=== PATIENT | male | born 1970 | race Caucasian/White ===

== ENCOUNTER 2024-03-10 12:25 | Observation (INO) ==
--- NOTE | 2024-03-10 12:55 | DR.GENAD ---
HPI Time Seen Time Seen by Provider: 03/10/24 12:55 COVID-19 Coronavirus risk:travel/contact w/high risk person: No Has patient experienced Coronavirus symptoms: No PMH Travel Risk Coronavirus risk:travel/contact w/high risk person: No Has patient experienced Coronavirus symptoms: No PE Vital Signs Vitals: Vital Signs Temperature 97.7 F Pulse Rate [Left Radial] 84 Pulse Rate [Left Radial] 85 Pulse Rate [Left Radial] 84 Pulse Rate [Left Radial] 85 Pulse Rate [Left Radial] 83 Pulse Rate [Left Radial] 83 Pulse Rate [Left Radial] 82 Pulse Rate [Left Radial] 83 Pulse Rate 89 Pulse Rate 83 Respiratory Rate 21 Respiratory Rate 17 Respiratory Rate 19 Respiratory Rate 22 Respiratory Rate 24 Respiratory Rate 17 Respiratory Rate 26 Respiratory Rate 24 Respiratory Rate 14 Respiratory Rate 16 Blood Pressure [Right Arm] 151/70 Blood Pressure [Right Arm] 133/70 Blood Pressure [Right Arm] 144/63 Blood Pressure [Right Arm] 179/86 Blood Pressure [Right Arm] 142/67 Blood Pressure [Right Arm] 166/75 Blood Pressure [Right Arm] 169/80 Blood Pressure [Right Arm] 160/84 Blood Pressure 160/84 O2 Sat by Pulse Oximetry 99 O2 Sat by Pulse Oximetry 99 O2 Sat by Pulse Oximetry 98 O2 Sat by Pulse Oximetry 100 O2 Sat by Pulse Oximetry 99 O2 Sat by Pulse Oximetry 98 O2 Sat by Pulse Oximetry 100 O2 Sat by Pulse Oximetry 99 O2 Sat by Pulse Oximetry 98 ROR Labs Reviewed 03/10/24 12:45 03/10/24 12:45 Laboratory: WBC 11.1 X10^3/uL (3.6-10.0) H 03/10/24 12:45 RBC 4.60 X10^6/uL (4.7-6.0) L 03/10/24 12:45 Hgb 12.7 g/dL (13.5-18.0) L 03/10/24 12:45 Hct 35.7 % (42.0-54.0) L 03/10/24 12:45 MCV 77.6 fL (80.0-100.0) L 03/10/24 12:45 MCH 27.6 pg (27.0-34.0) 03/10/24 12:45 MCHC 35.6 g/dL (33.0-35.0) H 03/10/24 12:45 RDW 14.3 % (11.6-16.5) 03/10/24 12:45 Plt Count 341 X10^3/uL (150.0-450.0) 03/10/24 12:45 MPV 7.9 fL (7.4-11.0) 03/10/24 12:45 Neut % (Auto) 77.9 % (42.0-75.0) H 03/10/24 12:45 Lymph % (Auto) 14.3 % (21.0-51.0) L 03/10/24 12:45 [place] % (Auto) 6.8 % (0.0-13.0) 03/10/24 12:45 Eos % (Auto) 0.2 % (0.9-2.9) L 03/10/24 12:45 Baso % (Auto) 0.8 % (0.2-1.0) 03/10/24 12:45 Neut # (Auto) 8.6 x10^3/uL (2.2-4.8) H 03/10/24 12:45 Lymph # (Auto) 1.6 X10^3/uL (1.3-2.9) 03/10/24 12:45 [place] # (Auto) 0.8 x10^3/uL (0.3-0.8) 03/10/24 12:45 Eos # (Auto) 0.0 x10^3/uL (0.0-0.2) 03/10/24 12:45 Baso # (Auto) 0.1 X10^3/uL (0.0-0.1) 03/10/24 12:45 Absolute Nucleated RBC 0.3 /100WBC 03/10/24 12:45 Sodium 143 mmol/L (136-145) 03/10/24 12:45 Corrected Sodium TNP 03/10/24 12:45 Potassium 3.0 mmol/L (3.5-5.1) L 03/10/24 12:45 Chloride 103 mmol/L (98-107) 03/10/24 12:45 Carbon Dioxide 33.1 mmol/L (21-32) H 03/10/24 12:45 BUN 11 mg/dL (7-18) 03/10/24 12:45 Creatinine 0.97 mg/dL (0.70-1.30) 03/10/24 12:45 Est GFR (MDRD) Af Amer > 60 (>60) 03/10/24 12:45 Est GFR (MDRD) Non-Af > 60 (>60) 03/10/24 12:45 Glucose 80 mg/dL (65-99) 03/10/24 12:45 Calcium 11.6 mg/dL (8.5-10.1) H 03/10/24 12:45 Corrected Calcium 12.2 mg/dL (8.5-10.1) H 03/10/24 12:45 Magnesium 1.3 mg/dL (2.0-2.9) L 03/10/24 17:53 Total Bilirubin 0.90 mg/dL (0.2-1.0) 03/10/24 12:45 AST 23 Units/L (15-37) 03/10/24 12:45 ALT 25 Units/L (12-78) 03/10/24 12:45 Alkaline Phosphatase 125 Units/L (46-116) H 03/10/24 12:45 Creatine Kinase 71 Units/L (39-308) 03/10/24 12:45 Troponin I High Sens 34.3 ng/L (4.0-60.0) 03/10/24 12:45 Total Protein 7.1 g/dL (6.4-8.2) 03/10/24 12:45 Albumin 3.2 g/dL (3.4-5.0) L 03/10/24 12:45 Globulin 3.9 g/dL (2.5-4.5) 03/10/24 12:45 Albumin/Globulin Ratio 0.8 Ratio (1.1-2.1) L 03/10/24 12:45 Specimen Type Clean catch urine 03/10/24 15:49 Urine Color Yellow (YELLOW) 03/10/24 15:49 Urine Appearance Clear (CLEAR) 03/10/24 15:49 Urine pH 6.0 (5.0 - 8.0) 03/10/24 15:49 Ur Specific [place] 1.020 (1.000-1.030) 03/10/24 15:49 Urine Protein 2+ (NEGATIVE) 03/10/24 15:49 Urine Glucose (UA) Negative (NEGATIVE) 03/10/24 15:49 Urine Ketones 3+ (NEGATIVE) 03/10/24 15:49 Urine Blood Negative (NEGATIVE) 03/10/24 15:49 Urine Nitrite Negative (NEGATIVE) 03/10/24 15:49 Urine Bilirubin 1+ (NEGATIVE) 03/10/24 15:49 Urine Urobilinogen Normal (NORMAL) 03/10/24 15:49 Ur Leukocyte Esterase Negative (NEGATIVE) 03/10/24 15:49 Urine RBC 0-2 /HPF (0-3) 03/10/24 15:49 Urine WBC 3-5 /HPF (0-5) 03/10/24 15:49 Ur Squamous Epith Cells Rare /HPF (NEGATIVE) 03/10/24 15:49 Ur Renal Epithelial Cell Rare /HPF (NEGATIVE) 03/10/24 15:49 Urine Bacteria Trace /HPF (NEGATIVE) 03/10/24 15:49 Hyaline Casts Moderate /LPF (NEGATIVE) 03/10/24 15:49 Urine Mucus Few /HPF (NEGATIVE) 03/10/24 15:49 Ur Culture Indicated? No/not indicated 03/10/24 15:49 Opioid Opioid Risk Tool Age ([place] box if 16-45): No History of Preadolescent Sexual Abuse: No Total: 0 Total Score Risk Category: Low Risk Copyright: Victor Manuel PEREZ predicting aberrant behaviors Discharge Plan Diagnosis Discharge Problem: Weakness, Hypokalemia, Unable to ambulate, AMS (altered mental status) Discharge Plan Patient Disposition: HOME, SELF-CARE Condition: Stable Prescriptions: No Action metoprolol succinate 50 mg Tablet Extended Release 24 Hr 50 mg PO QDAY methimazole 10 mg Tablet 10 mg PO Q8H mirtazapine 7.5 mg Tablet 7.5 mg PO QHS emtricitabine-tenofovir (TDF) 200-300 mg Tablet 1 tab PO QDAY Health Concerns: Post Hospitalization: new medications and changes needed to prevent readmission or further decline. Pt educated and given instructions on all concerns. Plan of Treatment: Continue with present treatment and follow up plan. Pt is to keep follow up appointment as instructed and take medications as ordered. Orders to Discharge Patient Discharge Orders: Transfer (Routine); Ordered 03/10/24 Ordered By: JUSTICE JORGE Instructions Stand Alone Forms: Find Help Web Site, Post Hospital Follow Up Care
[2024-03-10 13:09] LABS: BASOPHILS # (AUTO) 0.1 X10^3/uL (0.0-0.1); BASOPHILS % (AUTO) 0.8 % (0.2-1.0); EOSINOPHILS % (AUTO) 0.2 % (0.9-2.9); HEMATOCRIT 35.7 % (42.0-54.0); HEMOGLOBIN 12.7 g/dL (13.5-18.0); LYMPHOCYTES # (AUTO) 1.6 X10^3/uL (1.3-2.9); LYMPHOCYTES % (AUTO) 14.3 % (21.0-51.0); MEAN CORPUSCULAR HEMOGLOBIN 27.6 pg (27.0-34.0); MEAN CORPUSCULAR HGB CONC 35.6 g/dL (33.0-35.0); MEAN CORPUSCULAR VOLUME 77.6 fL (80.0-100.0); MEAN PLATELET VOLUME 7.9 fL (7.4-11.0); MONOCYTES # (AUTO) 0.8 x10^3/uL (0.3-0.8); MONOCYTES % (AUTO) 6.8 % (0.0-13.0); NEUTROPHILS # (AUTO) 8.6 x10^3/uL (2.2-4.8); NEUTROPHILS % (AUTO) 77.9 % (42.0-75.0); PLATELET COUNT 341 X10^3/uL (150.0-450.0); RED CELL DISTRIBUTION WIDTH 14.3 % (11.6-16.5); WHITE BLOOD COUNT 11.1 X10^3/uL (3.6-10.0)
[2024-03-10 13:18] LABS: ALANINE AMINOTRANSFERASE 25 Units/L (12-78); ALBUMIN 3.2 g/dL (3.4-5.0); ALKALINE PHOSPHATASE 125 Units/L (46-116); ASPARTATE AMINO TRANSFERASE 23 Units/L (15-37); BLOOD UREA NITROGEN 11 mg/dL (7-18); CALCIUM 11.6 mg/dL (8.5-10.1); CARBON DIOXIDE 33.1 mmol/L (21-32); CHLORIDE 103 mmol/L (98-107); COR CA(FOR HYPOALB) 12.2 mg/dL (8.5-10.1); CREATINE KINASE 71 Units/L (39-308); CREATININE 0.97 mg/dL (0.70-1.30); GLUCOSE 80 mg/dL (65-99); SODIUM 143 mmol/L (136-145); TOTAL PROTEIN 7.1 g/dL (6.4-8.2); eGFR NON BLACK RACES > 60 (>60)
--- NOTE | 2024-03-10 13:18 | EKG ---
Test Reason : syncopy Blood Pressure : */* mmHG Vent. Rate : 82 BPM Atrial Rate : 82 BPM P-R Int : 226 ms QRS Dur : 86 ms QT Int : 388 ms P-R-T Axes : 66 28 33 degrees QTc Int : 453 ms Sinus rhythm with 1st degree AV block Otherwise normal ECG No previous ECGs available Confirmed by Brennon Feliz MD ([id number]) on 03/12/2024 7:35:51 AM Referred By: Confirmed By: Brennon Feliz MD
--- NOTE | 2024-03-10 13:36 | CT ---
EXAM: BRAIN W/O CON HISTORY: AMS; COMPARISON: None. TECHNIQUE: Multiple axial images of the head were performed from the skullbase to the vertex using standard depa rtmental protocol. Sagittal and coronal reformatted images were performed. Dose reduction techniques including Automated Exposure Control (AEC) and adjustment of mA and kV were utilized. FINDINGS: The sulci, cisterns and ventricles are age appropriate. Mild cortical atrophy compatible with patien t's age. There is no evidence of acute territorial infarction, hemorrhage, mass, mass effect or midl ine shift. There are no abnormal intra-axial or extra-axial fluid collections. The visualized paranas al sinuses and mastoid air cells are predominantly clear. IMPRESSION: Mild cortical atrophy. No acute intracranial pathology THIS IS AN ELECTRONICALLY VERIFIED FINAL REPORT 03/10/2024 1:29 PM - Electronically signed by Huy Rojas MD
[2024-03-10] MEDS: NS 1,000 ML IV 1,000 ML IV SCH ×2 (14:03→23:53)
[2024-03-10] MEDS: K-DUR TAB 20 MEQ PO ONE (15:25)
[2024-03-10 16:04] LABS: BILIRUBIN,URINE 1+ (NEGATIVE); BLOOD/HEMOGLOBIN,URINE NEGATIVE (NEGATIVE); GLUCOSE, URINE NEGATIVE (NEGATIVE); KETONES,URINE 3+ (NEGATIVE); LEUKOCYTE ESTERASE ,URINE NEGATIVE (NEGATIVE); NITRITES,URINE NEGATIVE (NEGATIVE); PROTEIN,URINE 2+ (NEGATIVE); UROBILINOGEN,URINE NORMAL (NORMAL)
[2024-03-10 16:13] LABS: APPEARANCE,URINE CLEAR (CLEAR); COLOR,URINE YELLOW (YELLOW)
[2024-03-10 16:19] LABS: BACTERIA,URINE TRACE /HPF (NEGATIVE); HYALINE CASTS, URINE MODERATE /LPF (NEGATIVE); RBC,URINE 0-2 /HPF (0-3); SQUAMOUS EPITHELIAL CELL,UR RARE /HPF (NEGATIVE)
[2024-03-10 16:20] LABS: RENAL EPITHELIAL CELLS,URINE RARE /HPF (NEGATIVE)
[2024-03-10 21:02] VITALS: BMI 20.9
[2024-03-11 06:14] LABS: BASOPHILS # (AUTO) 0.1 X10^3/uL (0.0-0.1); BASOPHILS % (AUTO) 1.2 % (0.2-1.0); EOSINOPHILS # (AUTO) 0.1 x10^3/uL (0.0-0.2); EOSINOPHILS % (AUTO) 1.2 % (0.9-2.9); HEMATOCRIT 30.2 % (42.0-54.0); HEMOGLOBIN 10.9 g/dL (13.5-18.0); LYMPHOCYTES # (AUTO) 3.2 X10^3/uL (1.3-2.9); LYMPHOCYTES % (AUTO) 37.2 % (21.0-51.0); MEAN CORPUSCULAR HEMOGLOBIN 27.9 pg (27.0-34.0); MEAN CORPUSCULAR HGB CONC 35.9 g/dL (33.0-35.0); MEAN CORPUSCULAR VOLUME 77.8 fL (80.0-100.0); MEAN PLATELET VOLUME 7.7 fL (7.4-11.0); MONOCYTES # (AUTO) 0.7 x10^3/uL (0.3-0.8); MONOCYTES % (AUTO) 8.6 % (0.0-13.0); NEUTROPHILS # (AUTO) 4.4 x10^3/uL (2.2-4.8); NEUTROPHILS % (AUTO) 51.8 % (42.0-75.0); PLATELET COUNT 302 X10^3/uL (150.0-450.0); RED BLOOD COUNT 3.89 X10^6/uL (4.7-6.0); RED CELL DISTRIBUTION WIDTH 14.3 % (11.6-16.5); WHITE BLOOD COUNT 8.6 X10^3/uL (3.6-10.0)
[2024-03-11 06:27] LABS: ALANINE AMINOTRANSFERASE 22 Units/L (12-78); ALBUMIN 2.8 g/dL (3.4-5.0); ALKALINE PHOSPHATASE 111 Units/L (46-116); BLOOD UREA NITROGEN 14 mg/dL (7-18); CALCIUM 10.9 mg/dL (8.5-10.1); CARBON DIOXIDE 30.6 mmol/L (21-32); CHLORIDE 106 mmol/L (98-107); COR CA(FOR HYPOALB) 11.9 mg/dL (8.5-10.1); CREATININE 1.21 mg/dL (0.70-1.30); GLUCOSE 75 mg/dL (65-99); MAGNESIUM 1.3 mg/dL (2.0-2.9); SODIUM 145 mmol/L (136-145); TOTAL PROTEIN 6.2 g/dL (6.4-8.2); eGFR NON BLACK RACES > 60 (>60)
[2024-03-11 06:30] LABS: POTASSIUM 2.7 mmol/L (3.5-5.1)
[2024-03-11 06:39] LABS: ASPARTATE AMINO TRANSFERASE 19 Units/L (15-37)
[2024-03-11] MEDS ORDERED: K-DUR TAB 20 MEQ PO SCH (09:00)
[2024-03-11] MEDS ORDERED: MAG-OX TAB PO SCH (09:00)
[2024-03-11] MEDS: NS + KCL 20 MEQ/L 1,000 ML with MAGNESIUM SULFATE 50% INJ VIAL 1 G IV SCH (09:13)
[2024-03-11] MEDS: NICOTINE PATCH TD SCH (09:13)
[2024-03-11] MEDS: TOPROL XL PO SCH (10:15)
[2024-03-11 10:53] LABS: CREATINE KINASE 66 Units/L (39-308); FREE T4 (FREE THYROXINE) 5.55 ng/dL (0.76-1.46)
[2024-03-11 10:55] LABS: TSH (3RD GENERATION) < 0.007 uIU/mL (0.358-3.74)
--- NOTE | 2024-03-11 12:07 | DR.H&P ---
H&P History & Physical for Day of: H&P Date: 03/11/24 Chief Complaint Chief Complaint: Lower extremity weakness History of Present Illness History of Present Illness: Patient is a 53-year-old male with a past medical history of hypertension and hyperthyroidism [place] generalized [place]. He reports he has had difficulty that day with lower leg weakness. Labs/imaging: WBC 8.6, hemoglobin 10.9, platelets 302, sodium 145, potassium 2.7, creatinine 1.21, glucose 75, ma gnesium 1.3, UA negative, CT of the head was obtained that revealed no acute intracranial abnormalities. Patient was admitted for hypokalemia, hypomagnesemia, generalized weakness. He was started on potassium and magnesium protocol. He is ambulating to the restroom. On exam he appears to have st rength in all 4 extremities. Will restart home medications. Will get CRP and CK and also check thyroid levels. Otherwise continue with current treatment plan. Continue closely monitor and follow-up labs. Past Medical History Past Medical History: Anxiety, Depression and Hypertension Social History Does patient currently use any type of tobacco product: Yes Have you used tobacco products in the last 12 months: Yes Type of Tobacco Use: Vape Does any household member use tobacco: No Alcohol Use: None Drug Use: None Medications Home Medications: Home Medications Medication Instructions Recorded Confirmed Type emtricitabine 200 mg-tenofovir 1 tab PO QDAY 03/10/24 03/10/24 History disoproxil fumarate 300 mg tablet methimazole 10 mg tablet 10 mg PO Q8H 03/10/24 03/10/24 History metoprolol succinate 50 mg 50 mg PO QDAY 03/10/24 03/10/24 History tablet,extended release 24 hr mirtazapine 7.5 mg tablet 7.5 mg PO QHS 03/10/24 03/10/24 History amlodipine 10 mg tablet 10 mg PO DAILY 03/11/24 03/11/24 History losartan 100 mg tablet 100 mg PO DAILY 03/11/24 03/11/24 History Allergies Allergies Allergy/AdvReac Type Severity Reaction Status Date / Time No Known Allergies Allergy Verified 03/10/24 12:26 Labs 03/11/24 05:45 03/11/24 05:45 Labs: Laboratory WBC 8.6 X10^3/uL (3.6-10.0) 03/11/24 05:45 RBC 3.89 X10^6/uL (4.7-6.0) L 03/11/24 05:45 Hgb 10.9 g/dL (13.5-18.0) L 03/11/24 05:45 Hct 30.2 % (42.0-54.0) L 03/11/24 05:45 MCV 77.8 fL (80.0-100.0) L 03/11/24 05:45 MCH 27.9 pg (27.0-34.0) 03/11/24 05:45 MCHC 35.9 g/dL (33.0-35.0) H 03/11/24 05:45 RDW 14.3 % (11.6-16.5) 03/11/24 05:45 Plt Count 302 X10^3/uL (150.0-450.0) 03/11/24 05:45 MPV 7.7 fL (7.4-11.0) 03/11/24 05:45 Neut % (Auto) 51.8 % (42.0-75.0) 03/11/24 05:45 Lymph % (Auto) 37.2 % (21.0-51.0) 03/11/24 05:45 [place] % (Auto) 8.6 % (0.0-13.0) 03/11/24 05:45 Eos % (Auto) 1.2 % (0.9-2.9) 03/11/24 05:45 Baso % (Auto) 1.2 % (0.2-1.0) H 03/11/24 05:45 Neut # (Auto) 4.4 x10^3/uL (2.2-4.8) 03/11/24 05:45 Lymph # (Auto) 3.2 X10^3/uL (1.3-2.9) H 03/11/24 05:45 [place] # (Auto) 0.7 x10^3/uL (0.3-0.8) 03/11/24 05:45 Eos # (Auto) 0.1 x10^3/uL (0.0-0.2) 03/11/24 05:45 Baso # (Auto) 0.1 X10^3/uL (0.0-0.1) 03/11/24 05:45 Absolute Nucleated RBC 0.2 /100WBC 03/11/24 05:45 Sodium 145 mmol/L (136-145) 03/11/24 05:45 Corrected Sodium TNP 03/11/24 05:45 Potassium 2.7 mmol/L (3.5-5.1) L* 03/11/24 05:45 Chloride 106 mmol/L (98-107) 03/11/24 05:45 Carbon Dioxide 30.6 mmol/L (21-32) 03/11/24 05:45 BUN 14 mg/dL (7-18) 03/11/24 05:45 Creatinine 1.21 mg/dL (0.70-1.30) 03/11/24 05:45 Est GFR (MDRD) Af Amer > 60 (>60) 03/11/24 05:45 Est GFR (MDRD) Non-Af > 60 (>60) 03/11/24 05:45 Glucose 75 mg/dL (65-99) 03/11/24 05:45 Calcium 10.9 mg/dL (8.5-10.1) H 03/11/24 05:45 Corrected Calcium 11.9 mg/dL (8.5-10.1) H 03/11/24 05:45 Magnesium 1.3 mg/dL (2.0-2.9) L 03/11/24 05:45 Total Bilirubin 0.60 mg/dL (0.2-1.0) 03/11/24 05:45 AST 19 Units/L (15-37) 03/11/24 05:45 ALT 22 Units/L (12-78) 03/11/24 05:45 Alkaline Phosphatase 111 Units/L (46-116) 03/11/24 05:45 Creatine Kinase 66 Units/L (39-308) 03/11/24 05:45 Troponin I High Sens 34.3 ng/L (4.0-60.0) 03/10/24 12:45 C-Reactive Protein 28.20 mg/L (0-3.0) H 03/11/24 05:45 Total Protein 6.2 g/dL (6.4-8.2) L 03/11/24 05:45 Albumin 2.8 g/dL (3.4-5.0) L 03/11/24 05:45 Globulin 3.4 g/dL (2.5-4.5) 03/11/24 05:45 Albumin/Globulin Ratio 0.8 Ratio (1.1-2.1) L 03/11/24 05:45 Free T4 5.55 ng/dL (0.76-1.46) H 03/11/24 05:45 TSH 3rd Generation < 0.007 uIU/mL (0.358-3.74) L 03/11/24 05:45 Specimen Type Clean catch urine 03/10/24 15:49 Urine Color Yellow (YELLOW) 03/10/24 15:49 Urine Appearance Clear (CLEAR) 03/10/24 15:49 Urine pH 6.0 (5.0 - 8.0) 03/10/24 15:49 Ur Specific [place] 1.020 (1.000-1.030) 03/10/24 15:49 Urine Protein 2+ (NEGATIVE) 03/10/24 15:49 Urine Glucose (UA) Negative (NEGATIVE) 03/10/24 15:49 Urine Ketones 3+ (NEGATIVE) 03/10/24 15:49 Urine Blood Negative (NEGATIVE) 03/10/24 15:49 Urine Nitrite Negative (NEGATIVE) 03/10/24 15:49 Urine Bilirubin 1+ (NEGATIVE) 03/10/24 15:49 Urine Urobilinogen Normal (NORMAL) 03/10/24 15:49 Ur Leukocyte Esterase Negative (NEGATIVE) 03/10/24 15:49 Urine RBC 0-2 /HPF (0-3) 03/10/24 15:49 Urine WBC 3-5 /HPF (0-5) 03/10/24 15:49 Ur Squamous Epith Cells Rare /HPF (NEGATIVE) 03/10/24 15:49 Ur Renal Epithelial Cell Rare /HPF (NEGATIVE) 03/10/24 15:49 Urine Bacteria Trace /HPF (NEGATIVE) 03/10/24 15:49 Hyaline Casts Moderate /LPF (NEGATIVE) 03/10/24 15:49 Urine Mucus Few /HPF (NEGATIVE) 03/10/24 15:49 Ur Culture Indicated? No/not indicated 03/10/24 15:49 Review of Systems Constitutional: Weakness Eyes: No Symptoms Reported ENT: No Symptoms Reported Respiratory: No Symptoms Reported Cardiovascular: No Symptoms Reported Gastrointestinal: No Symptoms Reported Genitourinary: No Symptoms Reported Musculoskeletal: No Symptoms Reported Skin: No Symptoms Reported Neurological: No Symptoms Reported Physical Exam Vital Signs: Vital Signs Temperature 98.0 F Pulse Rate [Left Radial] 87 Respiratory Rate 19 Blood Pressure [Right Arm] 128/62 O2 Sat by Pulse Oximetry 97 Oriented: Normal Eyes: Normal Ear: Normal Nose: Normal Throat: Normal Respiratory: Clear Throughout Cardiovascular: Normal : Normal Auscultation: Bowel Sounds: Normal Palpation: Normal Tenderness: Normal Skin: Normal Musculoskeletal: Normal Psychiatric: Normal Mood Description: Calm and Appropriate Affect: Normal Speech Pattern: Clear and Appropriate Assessment/Plan (1) Hypokalemia: Status: Acute Plan: replete per protocol. (2) Weakness: Status: Acute (3) Hypomagnesemia: Status: Acute Review H&P Reviewed: Yes Patient was examined?: Yes
[2024-03-11 12:18] LABS: MAGNESIUM 1.3 mg/dL (2.0-2.9)
[2024-03-11 12:32] LABS: POTASSIUM 2.6 mmol/L (3.5-5.1)
[2024-03-11] MEDS: TAPAZOLE PO SCH (13:11)
[2024-03-11] MEDS: TAPAZOLE ONE (13:35)
--- NOTE | 2024-03-11 15:12 | RAD ---
EXAM:CHEST, 1 VIEWHISTORY:SOB;COMPARISON:None available.FINDINGS:The trachea is midline. The cardiac silhouette is unremarkable . The lungs are clear without focal infiltrate or effusion. The bony thorax is unremarkable.IMPRESSION:Normal chestTHIS IS AN ELECTRONICALLY VERIFIED FINAL [id number]/11/2024 3:08 PM - Electronically signed by Huy Rojas MD
[2024-03-11] MEDS: K-DUR TAB 20 MEQ PO SCH (16:00)
[2024-03-11] MEDS: MAG-OX TAB PO SCH (16:01)
[2024-03-11] MEDS: CONSULT PHARMACY - POTASSIUM & MAGNESIUM XX SCH (19:00)
[2024-03-11] MEDS: METHIMAZOLE 10 MG PO SCH (19:01)
[2024-03-11] MEDS ORDERED: TAPAZOLE ONE (19:55)
[2024-03-11] MEDS: REMERON PO SCH (20:59)
[2024-03-11] MEDS: CHECK PATCH XX SCH (21:00)
[2024-03-12 04:16] VITALS: O2SAT 96
[2024-03-12] MEDS ORDERED: TAPAZOLE ONE (05:11)
[2024-03-12 05:58] LABS: BASOPHILS % (AUTO) 0.8 % (0.2-1.0); EOSINOPHILS # (AUTO) 0.1 x10^3/uL (0.0-0.2); EOSINOPHILS % (AUTO) 2.3 % (0.9-2.9); HEMATOCRIT 29.7 % (42.0-54.0); HEMOGLOBIN 10.8 g/dL (13.5-18.0); LYMPHOCYTES # (AUTO) 2.7 X10^3/uL (1.3-2.9); LYMPHOCYTES % (AUTO) 47.6 % (21.0-51.0); MEAN CORPUSCULAR HEMOGLOBIN 28.1 pg (27.0-34.0); MEAN CORPUSCULAR HGB CONC 36.2 g/dL (33.0-35.0); MEAN CORPUSCULAR VOLUME 77.5 fL (80.0-100.0); MEAN PLATELET VOLUME 7.8 fL (7.4-11.0); MONOCYTES # (AUTO) 0.5 x10^3/uL (0.3-0.8); MONOCYTES % (AUTO) 9.7 % (0.0-13.0); NEUTROPHILS # (AUTO) 2.2 x10^3/uL (2.2-4.8); NEUTROPHILS % (AUTO) 39.6 % (42.0-75.0); PLATELET COUNT 289 X10^3/uL (150.0-450.0); RED BLOOD COUNT 3.83 X10^6/uL (4.7-6.0); RED CELL DISTRIBUTION WIDTH 14.6 % (11.6-16.5); WHITE BLOOD COUNT 5.6 X10^3/uL (3.6-10.0)
[2024-03-12 06:20] LABS: ALANINE AMINOTRANSFERASE 24 Units/L (12-78); ALBUMIN 2.8 g/dL (3.4-5.0); ALKALINE PHOSPHATASE 100 Units/L (46-116); ASPARTATE AMINO TRANSFERASE 23 Units/L (15-37); BLOOD UREA NITROGEN 8 mg/dL (7-18); CARBON DIOXIDE 29.4 mmol/L (21-32); CHLORIDE 107 mmol/L (98-107); CREATININE 0.75 mg/dL (0.70-1.30); GLUCOSE 92 mg/dL (65-99); MAGNESIUM 1.6 mg/dL (2.0-2.9); SODIUM 146 mmol/L (136-145); TOTAL PROTEIN 6.3 g/dL (6.4-8.2); eGFR NON BLACK RACES > 60 (>60)
[2024-03-12 06:24] LABS: POTASSIUM 2.6 mmol/L (3.5-5.1)
[2024-03-12] MEDS ORDERED: CONSULT PHARMACY - POTASSIUM & MAGNESIUM XX SCH (07:00)
[2024-03-12 08:09] VITALS: RESP 18
[2024-03-12] MEDS: [UNRECOGNIZED DRUG - OTHER] IV SCH (08:45)
[2024-03-12] MEDS: POTASSIUM CHLORIDE IV SCH (08:45)
[2024-03-12] MEDS: NS IV SCH (08:45)
[2024-03-12] MEDS: NORVASC TAB 10 MG PO SCH (08:46)
[2024-03-12] MEDS ORDERED: K-DUR TAB 20 MEQ PO SCH (09:00)
[2024-03-12] MEDS ORDERED: MAG-OX TAB PO SCH (09:00)
[2024-03-12] MEDS ORDERED: TRUVADA PO SCH (09:00)
[2024-03-12 11:52] VITALS: BP 167/77; PULSE 81; TEMP 98.6
[2024-03-12 12:12] LABS: ALANINE AMINOTRANSFERASE 29 Units/L (12-78); ALBUMIN 2.3 g/dL (3.4-5.0); ALKALINE PHOSPHATASE 95 Units/L (46-116); ASPARTATE AMINO TRANSFERASE 34 Units/L (15-37); BLOOD UREA NITROGEN 7 mg/dL (7-18); CALCIUM 9.3 mg/dL (8.5-10.1); CARBON DIOXIDE 30.7 mmol/L (21-32); CHLORIDE 108 mmol/L (98-107); COR CA(FOR HYPOALB) 10.7 mg/dL (8.5-10.1); COR NA(FOR HYPERGLY) 144 mmol/L (136-145); CREATININE 0.83 mg/dL (0.70-1.30); GLUCOSE 112 mg/dL (65-99); POTASSIUM 3.3 mmol/L (3.5-5.1); SODIUM 144 mmol/L (136-145); TOTAL PROTEIN 5.6 g/dL (6.4-8.2); eGFR NON BLACK RACES > 60 (>60)
== END 2024-03-12 14:30 | disposition home or self-care (01) ==
LOC: MED/SURG 12:25 → ER 12:25 → MED/SURG 20:09
PROVIDERS: ADMIT Family Medicine; ATTEND Family Medicine
DX: R41.82 Altered mental status, unspecified; R26.89 Other abnormalities of gait and mobility; E87.6 Hypokalemia; Z65.8 Other specified problems related to psychosocial circumstances; E83.42 Hypomagnesemia; R79.82 Elevated C-reactive protein (CRP); R06.02 Shortness of breath; I10 Essential (primary) hypertension; Z59.86 Financial insecurity; Z72.0 Tobacco use; R53.1 Weakness; Z59.00 Homelessness unspecified; R55 Syncope and collapse; Z59.41 Food insecurity; Z60.8 Other problems related to social environment; F41.8 Other specified anxiety disorders